=== PATIENT | female | born 1985 | race Two or more races ===

== ENCOUNTER 2021-01-19 19:14 | Inpatient (IN) | payer MEDICAID, OTHER ==
[~2021-01-19] VITALS: Ht 160 cm; Wt 52.2 kg
[2021-01-19] MEDS ORDERED: LEVETIRACETAM 500MG PREMIX 100 ML IV ONE (20:45)
[2021-01-19] MEDS ORDERED: SODIUM CHLORIDE 0.9% 1,000 ML IV ONE (20:45)
[2021-01-19] MEDS ORDERED: PHENOBARBITAL INJ 260 MG in SODIUM CHLORIDE 0.9% 100 ML IV ONE (21:00)
[2021-01-19] MEDS ORDERED: LORAZEPAM 2MG/ML CPJ IV ONE (21:00)
[2021-01-19 21:27] LABS: BASOPHILS % 3.1 % (0.0-2.0); HEMATOCRIT. 33.3 % (36.0-48.0); HEMOGLOBIN. 11.2 g/dL (12.0-16.0); LYMPHOCYTES % 12.4 % (20.0-50.0); MEAN CORPUSCULAR HEMOGLOBIN 34.7 pg (28.0-32.0); MEAN CORPUSCULAR VOLUME 103.1 fL (81.0-99.0); MEAN PLATELET VOLUME 7.6 fl (7.4-10.4); NEUTROPHILS % 71.5 % (40.0-76.0); PLATELET 104 x1000/uL (130-400); RED BLOOD CELL COUNT 3.24 mill/uL (4.2-5.4); RED CELL DISTRIBUTION WIDTH 17.1 % (11.6-14.6)
[2021-01-19 21:38] LABS: CHLORIDE 100 mEq/L (98-107)
[2021-01-19 21:41] LABS: HCG SCREEN NEGATIVE
[2021-01-19 21:42] LABS: ETHANOL BLOOD 22 mg/dL
[2021-01-19 21:51] LABS: PHENOBARBITAL < 2.1 ug/mL (15.0-40.0)
[2021-01-19 21:58] LABS: CARBAMAZEPINE < 0.5 ug/mL (4-12); VALPROIC ACID < 3.0 ug/mL (50-100)
[2021-01-20] VITALS (13 sets, daily range): BP systolic 109–136; BP diastolic 76–97
[2021-01-20] MEDS ORDERED: MAGNESIUM 2 G PREMIX 50 ML IV SCH ×2 (01:00→02:00)
[2021-01-20] MEDS ORDERED: PHENOBARBITAL INJ 260 MG in SODIUM CHLORIDE 0.9% 100 ML IV SCH (01:00)
[2021-01-20] MEDS ORDERED: CLONIDINE 0.1MG TABLET PO PRN (02:00)
[2021-01-20] MEDS ORDERED: ACETAMINOPHEN 325MG TABLET PO PRN ×2 (02:00)
[2021-01-20] MEDS ORDERED: ONDANSETRON HCL 4MG/2ML INJ IV PRN (02:00)
[2021-01-20 04:56] LABS: *AMPHETAMINES SCREEN URINE NEGATIVE (NEGATIVE); *BENZODIAZEPINES SCREEN URINE NEGATIVE (NEGATIVE); *COCAINE SCREEN URINE NEGATIVE (NEGATIVE); METHADONE URINE SCREEN NEGATIVE (NEGATIVE); OPIATES URINE SCREEN NEGATIVE (NEGATIVE); PHENCYCLIDINE URINE SCREEN NEGATIVE (NEGATIVE)
[2021-01-20 04:57] LABS: CANNABINOID URINE SCREEN NEGATIVE (NEGATIVE)
[2021-01-20 05:02] LABS: *BARBITURATES SCREEN URINE PRESUMTIVE POSITIVE (NEGATIVE)
[2021-01-20] MEDS ORDERED: POTASSIUM CHLORIDE INJ 40 MEQ in DEXT 5% WATER 250 ML IV SCH (06:00)
[2021-01-20] MEDS ORDERED: MVI, ADULT NO.1 10 ML, FOLIC ACID 1 MG, THIAMINE HCL 100 MG in SODIUM CHLORIDE 0.9% 1,0... IV SCH (06:00)
[2021-01-20] MEDS: SODIUM CHLORIDE 0.9% 1,000 ML IV SCH ×2 (06:03→17:18)
[2021-01-20] MEDS ORDERED: LEVETIRACETAM 500MG PREMIX 100 ML IV SCH (09:00)
[2021-01-20] MEDS: FAMOTIDINE 20MG/2ML VIAL IV SCH ×2 (09:07→20:39)
[2021-01-20] MEDS: LORAZEPAM 2MG/ML CPJ IV PRN (09:35)
[2021-01-20 13:13] LABS: CHLORIDE 106 mEq/L (98-107)
[2021-01-20 13:15] LABS: CHLORIDE 107 mEq/L (98-107)
[2021-01-20 13:20] LABS: PHOSPHORUS 1.8 mg/dL (2.5-4.9)
[2021-01-20] MEDS ORDERED: MAGNESIUM 2 G PREMIX 50 ML IV ONE (14:00)
[2021-01-20] MEDS ORDERED: POTASSIUM CHLORIDE INJ 40 MEQ in DEXT 5% WATER 250 ML IV NR (16:00)
[2021-01-20] MEDS: LEVETIRACETAM 500MG PREMIX 100 ML IV SCH (20:39)
[2021-01-21] VITALS (11 sets, daily range): BP systolic 107–212; BP diastolic 65–127
[2021-01-21] MEDS: SODIUM CHLORIDE 0.9% 1,000 ML IV SCH ×2 (02:30→12:29)
[2021-01-21 07:56] LABS: BASOPHILS % 0.9 % (0.0-2.0); HEMATOCRIT. 39.4 % (36.0-48.0); LYMPHOCYTES % 14.6 % (20.0-50.0); MEAN CORPUSCULAR HEMOGLOBIN 34.4 pg (28.0-32.0); MEAN CORPUSCULAR VOLUME 103.9 fL (81.0-99.0); MEAN PLATELET VOLUME 8.6 fl (7.4-10.4); MONOCYTES % 7.3 % (2.0-8.0); NEUTROPHILS % 75.2 % (40.0-76.0); PLATELET 83 x1000/uL (130-400); RED CELL DISTRIBUTION WIDTH 16.3 % (11.6-14.6)
[2021-01-21] MEDS: LEVETIRACETAM 500MG PREMIX 100 ML IV SCH (08:31)
[2021-01-21] MEDS: FAMOTIDINE 20MG/2ML VIAL IV SCH ×2 (08:31→20:45)
[2021-01-21 09:06] LABS: CHLORIDE 108 mEq/L (98-107)
[2021-01-21 09:15] LABS: PHOSPHORUS 2.3 mg/dL (2.5-4.9)
[2021-01-21] MEDS: LEVETIRACETAM 500MG TABLET PO SCH ×2 (20:45→21:00)
[2021-01-21] MEDS: LORAZEPAM 2MG/ML CPJ IV PRN (21:26)
[2021-01-21] MEDS: HALOPERIDOL LACTATE 5MG/ML VIAL IM PRN (21:45)
[2021-01-22] VITALS (12 sets, daily range): BP systolic 92–156; BP diastolic 66–98
[2021-01-22] MEDS: DEXT 5%/0.45% NACL KCL 20MEQ/L 1,000 ML IV SCH ×2 (00:42→17:38)
[2021-01-22] MEDS: LORAZEPAM 2MG/ML CPJ IV PRN ×5 (02:49→22:13)
[2021-01-22] MEDS: HALOPERIDOL LACTATE 5MG/ML VIAL IM PRN ×3 (04:39→17:37)
[2021-01-22 07:50] LABS: BASOPHILS % 1.1 % (0.0-2.0); EOSINOPHILS % 0.8 % (0.0-5.0); HEMATOCRIT. 33.7 % (36.0-48.0); HEMOGLOBIN. 11.3 g/dL (12.0-16.0); LYMPHOCYTES % 12.8 % (20.0-50.0); MEAN CORPUSCULAR HEMOGLOBIN 34.4 pg (28.0-32.0); MEAN CORPUSCULAR VOLUME 102.7 fL (81.0-99.0); MEAN PLATELET VOLUME 8.6 fl (7.4-10.4); MONOCYTES % 9.5 % (2.0-8.0); NEUTROPHILS % 75.8 % (40.0-76.0); PLATELET 89 x1000/uL (130-400); RED BLOOD CELL COUNT 3.28 mill/uL (4.2-5.4); RED CELL DISTRIBUTION WIDTH 16.5 % (11.6-14.6)
[2021-01-22 07:54] LABS: CHLORIDE 111 mEq/L (98-107)
[2021-01-22 08:02] LABS: PHOSPHORUS 1.5 mg/dL (2.5-4.9)
[2021-01-22] MEDS: LEVETIRACETAM 500MG TABLET PO SCH (08:26)
[2021-01-22] MEDS: FAMOTIDINE 20MG/2ML VIAL IV SCH ×2 (08:26→20:56)
[2021-01-22] MEDS ORDERED: POTASSIUM CHLORIDE 20MEQ TABLET SR PO NR (11:15)
[2021-01-22] MEDS ORDERED: MAGNESIUM 4 G PREMIX 100 ML IV ONE (12:00)
[2021-01-22] MEDS ORDERED: POTASSIUM PHOS,M-BASIC-D-BASIC 30 MMOL in SODIUM CHLORIDE 0.9% 500 ML IV ONE (12:30)
[2021-01-22] MEDS: DIPHENHYDRAMINE 50MG/ML VIAL IV PRN ×2 (13:10→16:36)
[2021-01-22] MEDS ORDERED: LEVETIRACETAM 500MG PREMIX 100 ML IV ONE (20:45)
[2021-01-22] MEDS: LEVETIRACETAM 500MG PREMIX 100 ML IV SCH (21:01)
[2021-01-23] VITALS (8 sets, daily range): BP systolic 93–117; BP diastolic 48–89
[2021-01-23] MEDS: LORAZEPAM 2MG/ML CPJ IV PRN ×2 (02:29→06:30)
[2021-01-23] MEDS: DEXT 5%/0.45% NACL KCL 20MEQ/L 1,000 ML IV SCH ×2 (02:29→16:32)
[2021-01-23 05:22] LABS: CHLORIDE 108 mEq/L (98-107)
[2021-01-23 05:29] LABS: PHOSPHORUS 4.5 mg/dL (2.5-4.9)
[2021-01-23 06:19] LABS: BASOPHILS % 1.5 % (0.0-2.0); EOSINOPHILS % 2.9 % (0.0-5.0); HEMOGLOBIN. 11.7 g/dL (12.0-16.0); LYMPHOCYTES % 21.3 % (20.0-50.0); MEAN CORPUSCULAR VOLUME 104.4 fL (81.0-99.0); MEAN PLATELET VOLUME 8.6 fl (7.4-10.4); MONOCYTES % 13.2 % (2.0-8.0); NEUTROPHILS % 61.1 % (40.0-76.0); PLATELET 111 x1000/uL (130-400); RED BLOOD CELL COUNT 3.44 mill/uL (4.2-5.4); RED CELL DISTRIBUTION WIDTH 16.6 % (11.6-14.6)
[2021-01-23] MEDS: FAMOTIDINE 20MG/2ML VIAL IV SCH ×2 (09:02→20:52)
[2021-01-23] MEDS: LEVETIRACETAM 500MG PREMIX 100 ML IV SCH ×2 (09:03→20:52)
[2021-01-24] MEDS: DEXT 5%/0.45% NACL KCL 20MEQ/L 1,000 ML IV SCH (05:23)
[2021-01-24 08:00] VITALS: BP 116/64
[2021-01-24] MEDS: FAMOTIDINE 20MG/2ML VIAL IV SCH (08:29)
[2021-01-24] MEDS: LEVETIRACETAM 500MG PREMIX 100 ML IV SCH (08:29)
[2021-01-24 12:00] VITALS: BP 95/63
[2021-01-24 16:00] VITALS: BP 93/67
[2021-01-24 17:24] VITALS: BP 92/65
== END 2021-01-24 19:03 | disposition home or self-care (01) | DRG 53 ==
LOC: ER 19:14 → 5EST 01-20 00:18 → EDBEDREQ 01-20 00:23 → EDBEDREQSVC 01-20 00:24 → EDBEDREQTM 01-20 02:42 → ENRESERV 01-20 03:15
PROVIDERS: ADMIT Internal Medicine; ATTEND Internal Medicine
DX: G40.509 Epileptic seizures related to external causes, not intractable, without status epilepticus (principal); G92 Toxic encephalopathy; F10.231 Alcohol dependence with withdrawal delirium; E83.42 Hypomagnesemia; E83.39 Other disorders of phosphorus metabolism; Y90.9 Presence of alcohol in blood, level not specified; E87.6 Hypokalemia; R74.01 Elevation of levels of liver transaminase levels; Z79.899 Other long term (current) drug therapy
CPT/HCPCS: 36415; 80048; 80053; 80156; 80165; 80184; 80185; 80305; 80320; 80329; 82010; 83605; 83735; 84100; 84703; 85025; 93005; 99285; J1200; J1630; J1953; J2060; J2560; J3411; J3475; J3480; J3490; J7030; J7040; J7050; J7060; G0480

== ENCOUNTER 2025-04-12 11:25 | Emergency (ER) | payer MEDICAID ==
[~2025-04-12] VITALS: Ht 160 cm; Wt 54.0 kg
[2025-04-12 11:37] VITALS: O2SAT 100
[2025-04-12 12:33] LABS: BASOPHILS % 0.5 % (0.0-2.0); EOSINOPHILS % 1.9 % (0.0-5.0); HEMATOCRIT. 38.4 % (36.0-48.0); HEMOGLOBIN. 13.3 g/dL (12.0-16.0); LYMPHOCYTES % 19.2 % (20.0-50.0); MEAN PLATELET VOLUME 7.6 fl (7.4-10.4); MONOCYTES % 5.0 % (2.0-8.0); NEUTROPHILS % 73.4 % (40.0-76.0); PLATELET 228 x1000/uL (130-400); RED BLOOD CELL COUNT 4.07 mill/uL (4.2-5.4); RED CELL DISTRIBUTION WIDTH 12.9 % (11.6-14.6)
[2025-04-12 12:41] LABS: HCG SCREEN POSITIVE
[2025-04-12 12:58] LABS: CREATININE 0.7 mg/dL (0.6-1.0); UREA NITROGEN BLOOD 7 mg/dL (9-23)
[2025-04-12 13:16] LABS: B-HCG QUANTITATIVE 1046 mIU/mL (<6)
[2025-04-12 13:28] LABS: CLARITY URINE CLEAR (CLEAR); COLOR URINE ORANGE (YELLOW); GLUCOSE URINE NEGATIVE (NEGATIVE); KETONES URINE NEGATIVE (NEGATIVE); LEUKOCYTE ESTERASE URINE 1+ (NEGATIVE); NITRITE URINE NEGATIVE (NEGATIVE); OCCULT BLOOD URINE 3+ (NEGATIVE); PH URINE 6.0 (4.5-8.0); PROTEIN URINE TRACE (NEGATIVE); SPECIFIC GRAVITY URINE 1.005 (1.005-1.030); UROBILINOGEN URINE 0.2 E.U./dL (0.2-1.0)
[2025-04-12 14:42] LABS: SQUAMOUS EPITHELIAL CELL URINE 1+ /lpf (RARE/1+)
[2025-04-12 14:43] LABS: BACTERIA URINE NONE SEEN; YEAST URINE NONE SEEN
[2025-04-12] MEDS: ACETAMINOPHEN 325MG TABLET PO ONE (14:53)
[2025-04-12 16:40] VITALS: BP 109/67; PULSE 80; RESP 20; TEMP 36.7; O2SAT 100
== END 2025-04-12 16:41 | disposition home or self-care (01) ==
LOC: ER 11:35
DX: O00.90 Unspecified ectopic pregnancy without intrauterine pregnancy (principal); Z3A.01 Less than 8 weeks gestation of pregnancy
CPT/HCPCS: 36415; 76830; 76856; 80048; 81003; 81025; 84702; 84703; 85025; 86850; 86900; 99284